=== PATIENT | male | born 1950 | race Caucasian/White ===

== ENCOUNTER → 2017-01-17 | Outpatient (CLI) | payer BC ==
[2017-01-17 08:24] LABS: ABSOLUTE BASOPHILS # (AUTO) 0.1 10^3/uL (0.0-0.2); ABSOLUTE EOSINOPHILS # (AUTO) 0.2 10^3/uL (0.0-0.6); ABSOLUTE LYMPHOCYTES (AUTO) 1.3 10^3/uL (0.5-4.7); ABSOLUTE MONOCYTES (AUTO) 0.5 10^3/uL (0.1-1.4); ABSOLUTE NEUT (AUTO) 3.9 10^3/uL (1.7-8.2); BASOPHILS % (AUTO) 1.2 % (0-2); EOSINOPHILS % (AUTO) 2.6 % (0-6); HEMATOCRIT 50.5 % (37.9-51.0); HEMOGLOBIN 17.6 g/dL (13.5-17.0); HGB HCT DIFFERENCE 2.3; LYMPHOCYTES % (AUTO) 21.4 % (13-45); MEAN CORPUSCULAR HEMOGLOBIN 30.4 pg (27.0-33.4); MEAN CORPUSCULAR HGB CONC 34.9 g/dL (32.0-36.0); MEAN CORPUSCULAR VOLUME 87 fl (80-97); MONOCYTES % (AUTO) 8.2 % (3-13); RED CELL DISTRIBUTION WIDTH 14.5 % (11.5-14.0); SEGMENTED NEUTROPHILS % (AUTO) 66.6 % (42-78); WHITE BLOOD COUNT 5.9 10^3/uL (4.0-10.5)
[2017-01-17 08:47] LABS: ALANINE AMINOTRANSFERASE 48 U/L (21-72); ALBUMIN 4.2 g/dL (3.5-5.0); ALKALINE PHOSPHATASE 56 U/L (38-126); ANION GAP 12 (5-19); ASPARTATE AMINO TRANSFERASE 30 U/L (17-59); BILIRUBIN,DIRECT 0.4 mg/dL (0.0-0.4); BILIRUBIN,TOTAL 1.5 mg/dL (0.2-1.3); BLOOD UREA NITROGEN 14 mg/dL (7-20); CALCIUM 9.2 mg/dL (8.4-10.2); CARBON DIOXIDE 25 mmol/L (22-30); CHLORIDE 107 mmol/L (98-107); CHOLESTEROL 152.35 mg/dL (0-200); CREATININE RESULT 0.89 mg/dL (0.52-1.25); Direct HDL 46 mg/dL (>40); GLUCOSE 98 mg/dL (75-110); POTASSIUM 4.2 mmol/L (3.6-5.0); SODIUM 144.4 mmol/L (137-145); TOTAL PROTEIN 6.3 g/dL (6.3-8.2); TRIGLYCERIDES 110 mg/dL (<150); URIC ACID 4.9 mg/dL (3.5-8.5)
[2017-01-17 08:57] LABS: DIRECT LDL 83 mg/dL (<100)
[2017-01-17 09:26] LABS: ALBUMIN 4.2 g/dL (3.5-5.0); ANION GAP 12 (5-19); ASPARTATE AMINO TRANSFERASE 30 U/L (17-59); BLOOD UREA NITROGEN 14 mg/dL (7-20); CALCIUM 9.2 mg/dL (8.4-10.2); CARBON DIOXIDE 25 mmol/L (22-30); CHLORIDE 107 mmol/L (98-107); CREATININE RESULT 0.89 mg/dL (0.52-1.25); GLUCOSE 98 mg/dL (75-110); POTASSIUM 4.2 mmol/L (3.6-5.0); SODIUM 144.4 mmol/L (137-145)
[2017-01-17 09:27] LABS: ALANINE AMINOTRANSFERASE 48 U/L (21-72); ALKALINE PHOSPHATASE 56 U/L (38-126); BILIRUBIN,DIRECT 0.4 mg/dL (0.0-0.4); BILIRUBIN,TOTAL 1.5 mg/dL (0.2-1.3); CHOLESTEROL 152.35 mg/dL (0-200); TOTAL PROTEIN 6.3 g/dL (6.3-8.2); TRIGLYCERIDES 110 mg/dL (<150)
[2017-01-17 09:28] LABS: DIRECT LDL 83 mg/dL (<100); Direct HDL 46 mg/dL (>40)
== END ==
LOC: OD 07:29
PROVIDERS: ATTEND Internal Medicine
DX: I10 Essential (primary) hypertension (principal); M10.9 Gout, unspecified; R53.83 Other fatigue; E78.5 Hyperlipidemia, unspecified
CPT/HCPCS: 36415; 80053; 80061; 84403; 84443; 84550; 85025

== ENCOUNTER → 2017-07-17 | Outpatient (CLI) | payer BC, MEDICARE ==
[2017-07-17 09:32] LABS: ABSOLUTE BASOPHILS # (AUTO) 0.1 10^3/uL (0.0-0.2); ABSOLUTE EOSINOPHILS # (AUTO) 0.2 10^3/uL (0.0-0.6); ABSOLUTE LYMPHOCYTES (AUTO) 1.3 10^3/uL (0.5-4.7); ABSOLUTE MONOCYTES (AUTO) 0.6 10^3/uL (0.1-1.4); ABSOLUTE NEUT (AUTO) 4.3 10^3/uL (1.7-8.2); BASOPHILS % (AUTO) 1.4 % (0-2); EOSINOPHILS % (AUTO) 2.5 % (0-6); HEMATOCRIT 53.7 % (37.9-51.0); HEMOGLOBIN 18.2 g/dL (13.5-17.0); LYMPHOCYTES % (AUTO) 20.5 % (13-45); MEAN CORPUSCULAR HEMOGLOBIN 29.2 pg (27.0-33.4); MEAN CORPUSCULAR HGB CONC 33.9 g/dL (32.0-36.0); MEAN CORPUSCULAR VOLUME 86 fl (80-97); MONOCYTES % (AUTO) 8.6 % (3-13); PLATELET COUNT 163 10^3/uL (150-450); RED BLOOD COUNT 6.25 10^6/uL (4.35-5.55); TOTAL CELLS COUNTED % (AUTO) 100 %; WHITE BLOOD COUNT 6.4 10^3/uL (4.0-10.5)
[2017-07-17 10:00] LABS: ALANINE AMINOTRANSFERASE 50 U/L (21-72); ALBUMIN 4.3 g/dL (3.5-5.0); ALKALINE PHOSPHATASE 59 U/L (38-126); ANION GAP 11 (5-19); ASPARTATE AMINO TRANSFERASE 38 U/L (17-59); BILIRUBIN,DIRECT 0.3 mg/dL (0.0-0.4); BILIRUBIN,TOTAL 0.8 mg/dL (0.2-1.3); BLOOD UREA NITROGEN 18 mg/dL (7-20); CALCIUM 9.6 mg/dL (8.4-10.2); CARBON DIOXIDE 30 mmol/L (22-30); CHLORIDE 105 mmol/L (98-107); GLUCOSE 115 mg/dL (75-110); POTASSIUM 4.2 mmol/L (3.6-5.0); TOTAL PROTEIN 6.7 g/dL (6.3-8.2)
== END ==
LOC: OD 08:08
PROVIDERS: ATTEND Internal Medicine
DX: I10 Essential (primary) hypertension (principal); M10.9 Gout, unspecified; E29.1 Testicular hypofunction; R53.83 Other fatigue; R35.1 Nocturia; D75.1 Secondary polycythemia
CPT/HCPCS: 36415; 80053; 84153; 84403; 84550; 85025

== ENCOUNTER → 2017-11-15 | Outpatient (CLI) | payer BC ==
[2017-11-15 08:17] LABS: ABSOLUTE BASOPHILS # (AUTO) 0.1 10^3/uL (0.0-0.2); ABSOLUTE EOSINOPHILS # (AUTO) 0.1 10^3/uL (0.0-0.6); ABSOLUTE LYMPHOCYTES (AUTO) 1.4 10^3/uL (0.5-4.7); ABSOLUTE MONOCYTES (AUTO) 0.5 10^3/uL (0.1-1.4); ABSOLUTE NEUT (AUTO) 3.3 10^3/uL (1.7-8.2); BASOPHILS % (AUTO) 1.7 % (0-2); EOSINOPHILS % (AUTO) 2.7 % (0-6); HEMATOCRIT 45.6 % (37.9-51.0); LYMPHOCYTES % (AUTO) 25.5 % (13-45); MEAN CORPUSCULAR HEMOGLOBIN 30.5 pg (27.0-33.4); MEAN CORPUSCULAR VOLUME 87 fl (80-97); PLATELET COUNT 167 10^3/uL (150-450); RED BLOOD COUNT 5.24 10^6/uL (4.35-5.55); RED CELL DISTRIBUTION WIDTH 14.2 % (11.5-14.0); SEGMENTED NEUTROPHILS % (AUTO) 61.1 % (42-78); TOTAL CELLS COUNTED % (AUTO) 100 %; WHITE BLOOD COUNT 5.4 10^3/uL (4.0-10.5)
== END ==
LOC: OD 07:17
PROVIDERS: ATTEND Internal Medicine
DX: D75.1 Secondary polycythemia (principal); E29.1 Testicular hypofunction
CPT/HCPCS: 36415; 84403; 85025

== ENCOUNTER 2017-11-28 07:50 | Day surgery (SDC) | payer BC, MEDICARE ==
[2017-11-20 09:49] LABS: HEMATOCRIT 47.1 % (37.9-51.0); HEMOGLOBIN 16.5 g/dL (13.5-17.0); MEAN CORPUSCULAR HEMOGLOBIN 30.5 pg (27.0-33.4); MEAN CORPUSCULAR VOLUME 87 fl (80-97); PLATELET COUNT 166 10^3/uL (150-450); RED BLOOD COUNT 5.41 10^6/uL (4.35-5.55); RED CELL DISTRIBUTION WIDTH 13.9 % (11.5-14.0); WHITE BLOOD COUNT 5.8 10^3/uL (4.0-10.5)
[2017-11-20 09:55] LABS: APPEARANCE,URINE SLIGHTLY-CLOUDY; BILIRUBIN,URINE NEGATIVE (NEGATIVE); COLOR,URINE YELLOW; GLUCOSE, URINE NEGATIVE (NEGATIVE); KETONES,URINE NEGATIVE (NEGATIVE); LEUKOCYTE ESTERASE,URINE NEGATIVE (NEGATIVE); NITRITE,URINE NEGATIVE (NEGATIVE); PROTEIN,URINE NEGATIVE (NEGATIVE); URINE SPECIFIC GRAVITY 1.015; UROBILINOGEN,URINE NEGATIVE mg/dL (<2.0)
[2017-11-20 10:08] LABS: ANION GAP 7 (5-19); BLOOD UREA NITROGEN 20 mg/dL (7-20); CARBON DIOXIDE 30 mmol/L (22-30); CHLORIDE 104 mmol/L (98-107); GLUCOSE 102 mg/dL (75-110); POTASSIUM 4.4 mmol/L (3.6-5.0); SODIUM 141.3 mmol/L (137-145)
--- NOTE | 2017-11-20 11:12 | EKG REPORT ---
SEVERITY:- NORMAL ECG - SINUS RHYTHM : Confirmed by: Laura Meza 20-Nov-2017 11:11:30
[~2017-11-28 07:50] MED LIST: LACTATED RINGERS 1000 ML IV PRN; LIDOCAINE 0.5% INJ-PF (5 MG/ML) 50 ML SDV SUBCUT PRN; VANCOMYCIN HCL 1,000 MG in DEXTROSE 5%-WATER 250 ML IV PRN; VANCOMYCIN HCL 1,000 MG in NORMAL SALINE 250 ML IV PRN
[2017-11-28] MEDS ORDERED: BUPIVACAINE HCL 0.5 % INJ/PF 30 ML SDV ONE (08:42)
[2017-11-28] MEDS ORDERED: EPINEPHRINE INJ/PF 1 MG/1 ML AMPULE ONE (08:42)
[2017-11-28] MEDS ORDERED: SUCCINYLCHOLINE CHLORIDE INJ 200 MG/10 ML VIAL ONE (08:55)
[2017-11-28] MEDS ORDERED: ROCURONIUM BROMIDE INJ 50 MG/5 ML VIAL IV ONE (08:55)
[2017-11-28] MEDS ORDERED: ONDANSETRON HCL INJ/PF 4 MG/2 ML SDV ONE (08:55)
[2017-11-28] MEDS ORDERED: DEXAMETHASONE SOD PHOSPHATE INJ 4 MG/1 ML VIAL ONE (08:55)
[2017-11-28] MEDS ORDERED: FENTANYL CITRATE INJ/PF 250 MCG/5 ML AMPULE ONE (11:18)
[2017-11-28] MEDS ORDERED: HYDROMORPHONE HCL INJ/PF 2 MG/ML AMPULE ONE (11:18)
[2017-11-28] MEDS ORDERED: PROPOFOL INJ 200 MG/20 ML VIAL IV ONE (11:18)
[2017-11-28] MEDS ORDERED: EPHEDRINE SULFATE INJ 50 MG/1 ML AMPULE ONE (11:18)
[2017-11-28] MEDS ORDERED: MIDAZOLAM 2 MG/2 ML INJ ONE (11:18)
[2017-11-28] MEDS ORDERED: FENTANYL CITRATE INJ/PF 100 MCG/2 ML AMPUL IV PRN ×3 (13:29)
[2017-11-28] MEDS ORDERED: MEPERIDINE HCL/PF INJ 25 MG/1 ML DISP.SYRIN IV PRN (13:29)
[2017-11-28] MEDS ORDERED: PROMETHAZINE HCL INJ 25 MG/1 ML VIAL IV PRN ×2 (13:29)
[2017-11-28] MEDS ORDERED: DIPHENHYDRAMINE HCL 50 MG/ML VIAL IV PRN (13:29)
[2017-11-28] MEDS ORDERED: MORPHINE SULFATE 10 MG/ML INJ IV PRN (13:29)
[2017-11-28] MEDS ORDERED: OXYCODONE-ACETAMINOPHEN 5-325 MG TABLET PO PRN ×4 (13:29→15:16)
--- NOTE | 2017-11-28 14:57 | Operative Report ---
Operative Report DATE OF SURGERY: 11/28/17 PREOPERATIVE DIAGNOSIS: Right shoulder rotator cuff tear and partial biceps tear POSTOPERATIVE DIAGNOSIS: Same OPERATION: Right shoulder arthroscopic rotator cuff repair and biceps tenodesis SURGEON: MISHA ALLAN ANESTHESIA: GA TISSUE REMOVED OR ALTERED: Portion of the biceps tendon COMPLICATIONS: None ESTIMATED BLOOD LOSS: Less than 20 mL INTRAOPERATIVE FINDINGS: As above PROCEDURE: IMPLANTS: 5.5 bio composite corkscrews x2, 4.75 mm by composite swivel locks and 1 proximal tenodesis button DESCRIPTION OF PROCEDURE: Patient was brought to the operating room placed in supine position. After successfully induced and intubated the patient patient was placed in the beachchair position the head and endotracheal tube was secured appropriately. The right shoulder was prepped and draped in a normal surgical fashion. A timeout was done identifying the right shoulder as the correct site. After inflating the glenohumeral joint with sterile saline solution an 11 blade was used to establish the posterior portal. The arthroscope was introduced and return of fluid was seen showing that we successfully penetrated the glenohumeral joint. With the use of spinal needle we're able to michelle the anterior portal and using an 11 blade able to establish anterior portal. A cannula was introduced through the anterior portal. At this point diagnostic scope was done. At first glance patient had a type II SLAP tear and was probed showing the detachment the biceps also was partially flattened and torn. Also when I turned my attention to the rotator cuff was evidence of showing the full-thickness rotator cuff tear. The articulation was intact. No loose bodies. A lateral portal was established 11 blade. Passport cannula was introduced to secure the lateral portal. 4.0mm shaver was introduced and was used to debride edges of the tear as well as bur the bone for preparation of anchor placement. Once I was satisfied with the preparation I then redirected my scope into the subacromial space. I noted with the cuff graft that I could bring back the infraspinatus and supraspinatus back onto the articular margin. At this point decision was to proceed with repair of large rotator cuff tear. A percutaneous incision was then just adjacent to the acromion on the lateral aspect. Through this percutaneous hole the awl was used to prepare the hole for an anchor. [place] was percutaneously sent flushed with the bone just adjacent to the articular margin.Same steps were taken for placement of our second anchor more posteriorly. Sutures were passed through the anterior portal for proper suture management. With the use of the scorpion and I proceeded to pass the sutures through the rotator cuff tendon with proper suture management was able to pass the strands either through percutaneous hole or the anterior portal. Once I was satisfied with placement of all my sutures I then proceeded to do my arthroscopic knots. At this point the strands were used to do our lateral row. 4.75 mm x2 bicomposite swivel lock were used for the lateral row fixation. Lateral aspect of the humerus was then cleaned off with a shaver and electrocautery. Once identified placementof the swivel lock, I proceeded to use my awl to do my hole. This this point the sutures were adequately tensioned and secured. Swivel lock was inserted and screwed in, securing and increasing the footprint of the rotator cuff repair. Remaining strands were cut with the arthroscopic cutter. Final pictures were taking showing my repair. At this point fluid from the shoulder was removed camera and instruments were all removed. I turned my attention to the subpectoralis biceps tenodesis portion of the case. I used a 15 blade and did a inch and a half incision on the anterior aspect of the arm adjacent to the axillary fold. I used electrocautery to obtain hemostasis of the subcutaneous tissue bleed. I used Metzenbaum scissors and 2 pierced and split the fascial tissue covering the biceps and deltoid. I used then combination of my finger and 90 clamp to palpate the long head of biceps and bicipital groove and capturing hook the tendon that was tenotomized. This was pulled through my incision successfully. I used a fiber loop to then secure my muscular tendinous portion which was approximately 2 cm. The remaining biceps was cut and discarded. The loop was, and the 2 strands were then fed through the tenodesis button. These were secured and then I proceeded to use Homans to expose the side of the humeral shaft and was able to used a 4 mm spade tip guidepin to drill the anterior cortex. This was removed and then the loaded button was then inserted and then removing the disposable portion was able to flip the button and securing the biceps onto the anterior cortex of the humerus. Half hitch knots were done to further secure the biceps. Remaining strand was cut with a fiber wire scissors. I used 0 Vicryl to approximate the subcutaneous tissue. I used 3-0 nylon to do closure of my incision. I proceeded to close my portal sites with 3 -0 nylon. Xeroform 4 x 4 dressing followed by ABDs pads and Medipore tape was applied. Patient was placed in a sling and returned to supine position where he was successfully extubated and taken to PACU in stable condition.
--- NOTE | 2017-11-28 15:02 | Discharge Summary ---
Discharge Summary (SDC) - Discharge Final Diagnosis: Rotator cuff repair and biceps tenodesis of right shoulder Date of Surgery: 11/28/17 Discharge Date: 11/28/17 Condition: Good Treatment or Instructions: Patient is instructed to follow up in 10-14 days. Patient instructed to remove dressing in 4 days then can shower and apply Band- Aids as needed. Patient to wear sling for comfort but okay to remove for shower and pendulum exercises. Pendulum exercises are instructed to be done 3 times a day ideally with breakfast, lunch, dinners and showers. Patient instructed to call if there is any signs of redness or drainage fevers or chills. Prescriptions: Oxycodone HCl/Acetaminophen [Percocet 5-325 mg Tablet] 1 - 2 tab PO ASDIR PRN # 60 tablet PRN Reason: Referrals: YUSUF DIAZ MD [Primary Care Provider] - Discharge Diet: As Tolerated Respiratory Treatments at Home: Deep Breathing/Coughing Discharge Activity: No Driving, No Lifting/Push/Pulling, Slowly Increase Activity, Walk Frequently Home Care Assistance: None Needed Report the Following to Your Physician Immediately: Shortness of Breath, Vomiting, Increase in Pain, Fever over 101 Degrees, Unusual Bleeding, Redness, Swelling, Warmth, Increased Soreness, Drainage-Yellow, Drainage-[place], Drainage- Green, Drainage-Foul Smelling
[2017-11-28] MEDS ORDERED: OXYCODONE-ACETAMINOPHEN 5-325 MG TABLET ONE (16:12)
[2017-11-28 17:41] VITALS: BP 152/87
== END 2017-11-28 17:20 | disposition home or self-care (01) ==
LOC: OROUT 07:50
PROVIDERS: ATTEND Orthopaedic Surgery
DX: M75.121 Complete rotator cuff tear or rupture of right shoulder, not specified as traumatic (principal); M62.1 Other rupture of muscle (nontraumatic); M25.511 Pain in right shoulder; I10 Essential (primary) hypertension; M19.90 Unspecified osteoarthritis, unspecified site; M10.9 Gout, unspecified; Z88.0 Allergy status to penicillin; Z79.899 Other long term (current) drug therapy; Z79.1 Long term (current) use of non-steroidal anti-inflammatories (NSAID)
CPT/HCPCS: 93005; 36415 ×2; 84132; 85027; 80048; 81001; 93010; 24340; 29827; C1713 ×3; J2250; J3490 ×3; J1100; J0171; J3010; J1170; J0330; J2405; J7050; J2704; J3370; 1630

== ENCOUNTER → 2018-05-30 | Outpatient (CLI) | payer BC ==
[2018-05-30 08:35] LABS: ABSOLUTE BASOPHILS # (AUTO) 0.1 10^3/uL (0.0-0.2); ABSOLUTE EOSINOPHILS # (AUTO) 0.2 10^3/uL (0.0-0.6); ABSOLUTE LYMPHOCYTES (AUTO) 1.4 10^3/uL (0.5-4.7); ABSOLUTE MONOCYTES (AUTO) 0.5 10^3/uL (0.1-1.4); ABSOLUTE NEUT (AUTO) 2.6 10^3/uL (1.7-8.2); BASOPHILS % (AUTO) 1.7 % (0-2); EOSINOPHILS % (AUTO) 3.6 % (0-6); LYMPHOCYTES % (AUTO) 29.8 % (13-45); MEAN CORPUSCULAR HEMOGLOBIN 30.2 pg (27.0-33.4); MEAN CORPUSCULAR HGB CONC 34.7 g/dL (32.0-36.0); MEAN CORPUSCULAR VOLUME 87 fl (80-97); MONOCYTES % (AUTO) 9.6 % (3-13); PLATELET COUNT 156 10^3/uL (150-450); RED BLOOD COUNT 5.28 10^6/uL (4.35-5.55); RED CELL DISTRIBUTION WIDTH 13.8 % (11.5-14.0); SEGMENTED NEUTROPHILS % (AUTO) 55.3 % (42-78); TOTAL CELLS COUNTED % (AUTO) 100 %; WHITE BLOOD COUNT 4.7 10^3/uL (4.0-10.5)
[2018-05-30 09:02] LABS: ALANINE AMINOTRANSFERASE 35 U/L (21-72); ALKALINE PHOSPHATASE 56 U/L (38-126); ANION GAP 5 (5-19); ASPARTATE AMINO TRANSFERASE 27 U/L (17-59); BILIRUBIN,DIRECT 0.3 mg/dL (0.0-0.4); BILIRUBIN,TOTAL 0.9 mg/dL (0.2-1.3); BLOOD UREA NITROGEN 17 mg/dL (7-20); CALCIUM 9.5 mg/dL (8.4-10.2); CARBON DIOXIDE 30 mmol/L (22-30); CHLORIDE 108 mmol/L (98-107); CHOLESTEROL 135.21 mg/dL (0-200); GLUCOSE 106 mg/dL (75-110); POTASSIUM 4.4 mmol/L (3.6-5.0); SODIUM 142.5 mmol/L (137-145); TOTAL PROTEIN 6.5 g/dL (6.3-8.2); TRIGLYCERIDES 85 mg/dL (<150)
[2018-05-30 09:13] LABS: DIRECT LDL 72 mg/dL (<100)
== END ==
LOC: OD 07:43
PROVIDERS: ATTEND Internal Medicine
DX: I10 Essential (primary) hypertension (principal); M10.9 Gout, unspecified; E78.5 Hyperlipidemia, unspecified; E29.1 Testicular hypofunction; R35.1 Nocturia
CPT/HCPCS: 36415; 80053; 80061; 84153; 84443; 84550; 85025

== ENCOUNTER → 2019-06-18 | Outpatient (CLI) | payer MEDICARE ==
[2019-06-18 09:53] LABS: ABSOLUTE BASOPHILS # (AUTO) 0.1 10^3/uL (0.0-0.2); ABSOLUTE EOSINOPHILS # (AUTO) 0.2 10^3/uL (0.0-0.6); ABSOLUTE LYMPHOCYTES (AUTO) 1.3 10^3/uL (0.5-4.7); ABSOLUTE MONOCYTES (AUTO) 0.6 10^3/uL (0.1-1.4); ABSOLUTE NEUT (AUTO) 4.8 10^3/uL (1.7-8.2); BASOPHILS % (AUTO) 1.4 % (0-2); EOSINOPHILS % (AUTO) 2.6 % (0-6); HEMATOCRIT 47.5 % (37.9-51.0); HEMOGLOBIN 16.5 g/dL (13.5-17.0); LYMPHOCYTES % (AUTO) 18.9 % (13-45); MEAN CORPUSCULAR HGB CONC 34.8 g/dL (32.0-36.0); MEAN CORPUSCULAR VOLUME 86 fl (80-97); MONOCYTES % (AUTO) 8.6 % (3-13); PLATELET COUNT 248 10^3/uL (150-450); RED BLOOD COUNT 5.51 10^6/uL (4.35-5.55); RED CELL DISTRIBUTION WIDTH 14.3 % (11.5-14.0); SEGMENTED NEUTROPHILS % (AUTO) 68.5 % (42-78); TOTAL CELLS COUNTED % (AUTO) 100 %
[2019-06-18 10:19] LABS: ALBUMIN 4.6 g/dL (3.5-5.0); ALKALINE PHOSPHATASE 98 U/L (38-126); ANION GAP 6 (5-19); ASPARTATE AMINO TRANSFERASE 25 U/L (17-59); BILIRUBIN,DIRECT 0.1 mg/dL (0.0-0.4); BILIRUBIN,TOTAL 0.9 mg/dL (0.2-1.3); BLOOD UREA NITROGEN 16 mg/dL (7-20); CALCIUM 9.6 mg/dL (8.4-10.2); CARBON DIOXIDE 30 mmol/L (22-30); CHLORIDE 103 mmol/L (98-107); CHOLESTEROL 144.63 mg/dL (0-200); GLUCOSE 110 mg/dL (75-110); POTASSIUM 4.7 mmol/L (3.6-5.0); TRIGLYCERIDES 119 mg/dL (<150); URIC ACID 4.1 mg/dL (3.5-8.5)
[2019-06-18 10:30] LABS: DIRECT LDL 86 mg/dL (<100)
== END ==
LOC: OD 08:49
PROVIDERS: ATTEND Internal Medicine
DX: I10 Essential (primary) hypertension (principal); E78.5 Hyperlipidemia, unspecified; M10.9 Gout, unspecified; R35.1 Nocturia; E29.1 Testicular hypofunction; R53.83 Other fatigue
CPT/HCPCS: 36415; 80053; 80061; 84153; 84403; 84443; 84550; 85025

== ENCOUNTER → 2019-08-13 | Outpatient (CLI) | payer MEDICARE ==
--- NOTE | 2019-08-13 15:55 | RADIOLOGY REPORT (SQ) ---
EXAM DESCRIPTION: MRI ABDOMEN WITHOUT IMAGES COMPLETED DATE/TIME: 08/13/2019 3:26 pm REASON FOR STUDY: ADRENAL MASS E27.9 DISORDER OF ADRENAL GLAND, UNSPECIFIED COMPARISON: None. TECHNIQUE: Noncontrast imaging with attention to the adrenal glands, including in and out of phase T 1 sequences. LIMITATIONS: None. FINDINGS: RIGHT ADRENAL GLAND: Normal configuration. No mass. LEFT ADRENAL GLAND: Within the medial limb there is a 2.3 x 1.7 x 2.1 cm nodular density which demons trates intermediate T1 and T2 signal with signal dropout on out of phase imaging, consistent with a l ipid rich adrenal adenoma. GALLBLADDER: No masses. No stones. No gallbladder wall thickening or pericholecystic fluid. LIVER AND BILIARY STRUCTURES: Normal. No ductal dilatation. SPLEEN: Normal. PANCREAS: Normal. Peripancreatic tissues normal. PERITONEUM: No ascites, gross adenopathy or implants. OTHER: Weinberg artifact is seen along the left lower ribs, suggesting metallic foreign bodies. [facility] for the purposes clarification of this finding. IMPRESSION: Left adrenal mass is revealed to be on the basis of a 2.3 cm lipid rich adenoma. Incide ntal finding of weinberg artifact along the left ribs is of uncertain etiology or significance. TECHNICAL DOCUMENTATION: JOB ID: [id number] 2010 [employer]- All Rights Reserved Reading location - IP/workstation name: [email or web address]
== END ==
LOC: RAD 13:45
PROVIDERS: ATTEND Internal Medicine
DX: D35.02 Benign neoplasm of left adrenal gland (principal)
CPT/HCPCS: 74181